=== PATIENT | male | born 1960 | race Caucasian/White ===

== ENCOUNTER 2017-05-13 08:00 | Inpatient (IN) | payer MEDICARE, OTHER ==
[~2017-05-13] VITALS: Ht 172.7 cm; Wt 72.8 kg
[2017-05-13] MEDS ORDERED: IOHEXOL 350 MG/ML 10 ML VIAL (for RAD DIAG) IVCONTRAST ONE (08:01)
[2017-05-13] MEDS ORDERED: XANA1TAB2 PO (08:10)
[2017-05-13] MEDS ORDERED: HYDR-3366 PO (08:10)
[2017-05-13] MEDS ORDERED: ZANT150T2 PO (08:10)
[2017-05-13 08:11] VITALS: BP 143/76; PULSE 66; RESP 18; TEMP 98.3; O2SAT 100
[2017-05-13] MEDS ORDERED: SUMA50TA2 PO (08:11)
[2017-05-13] MEDS ORDERED: SODIUM CHLOR 0.9% 1000 ML INJ 1,000 ML IV SCH (08:15)
[2017-05-13] MEDS ORDERED: ONDANSETRON HCL 4 MG/2 ML VIAL IVP ONE (08:15)
[2017-05-13 08:20] VITALS: PULSE 73; RESP 18; O2SAT 100
--- NOTE | 2017-05-13 08:30 | PD ---
HPI Chief Complaint: Abdominal Pain Time Seen by Provider: 08:33 Travel History International Travel<30 days: No Contact w/Intl Traveler<30days: No Traveled to known affect area: No History of Present Illness HPI 57yo M presented to the ED with abdominal pain. He states that the pain started last night before he went to bed and has remained constant. He describes the pain as sharp in nature and diffuse, localized to the RUQ. He rates the pain 10/ 10. He admits to vomiting, with at least 5 episodes throughout the night and the last with a small amount of blood. Pt admits to a history of GERD controlled with Zantec. Pt smokes 1/2 pack of cigarettes daily, no alcohol use and occasional THC use. Pt denies diarrhea, problems with urination, fevers, chest pain or SOB. Modifying Factors: None Associated Signs & Symptoms: Right upper quadrant abdominal pain, nausea and vomiting Risk Factors: None PFSH Past Medical History Anxiety: Yes Kidney Stones: Yes Migraines: Yes Past Surgical History Appendectomy: Yes Social History Alcohol Use: No Tobacco Use: Yes Substance Use: No Allergies-Medications (Allergen,Severity, Reaction): Coded Allergies: prochlorperazine (Verified Allergy, Unknown, 05/13/17) Reported Meds & Prescriptions Reported Meds & Active Scripts Active Reported Sumatriptan (Sumatriptan Succinate) 50 Mg Tab 50 Mg PO ONCE PRN If a satisfactory response has not been obtained at 2 hours, a second dose may be administered Zantac (Ranitidine HCl) 150 Mg Tab 150 Mg PO BID Xanax (Alprazolam) 1 Mg Tab 1 Mg PO Q8H PRN [place] (Hydrocodone-Acetaminophen) 10-325 Mg Tab 1 Tab PO Q8HR NEB PRN Review of Systems Except as stated in HPI: all other systems reviewed are Neg Gastrointestinal: Positive: Vomiting, Abdominal Pain Physical Exam Narrative GENERAL: 57yo W/M well-developed and well-nourished. Alert and oriented x3. Writhing in pain and in acute distress. SKIN: Warm and dry. HEAD: Atraumatic. Normocephalic. NECK: Trachea midline. No JVD. CARDIOVASCULAR: Regular rate and rhythm. No murmurs or gallops. RESPIRATORY: No accessory muscle use. Clear to auscultation. Breath sounds equal bilaterally. GASTROINTESTINAL: Abdomen soft and nondistended. Hepatic and splenic margins not palpable. Tenderness localized to the RUQ with guarding. MUSCULOSKELETAL: Extremities without clubbing, cyanosis, or edema. No obvious deformities. NEUROLOGICAL: Awake and alert. No obvious cranial nerve deficits. Motor grossly within normal limits. Normal speech. PSYCHIATRIC: Appropriate mood and affect; insight and judgment normal. Data Data Last Documented VS Vital Signs Date Time Temp Pulse Resp B/P (MAP) Pulse Ox O2 Delivery O2 Flow Rate FiO2 05/13/17 11:35 72 18 152/70 (97) 100 Room Air 05/13/17 08:11 98.3 Orders Orders Complete Blood Count With Diff (05/13/17 08:15) Comprehensive Metabolic Panel (05/13/17 08:15) Lipase (05/13/17 08:15) Urinalysis - C+S If Indicated (05/13/17 08:15) Iv Access Insert/Monitor (05/13/17 08:15) Ecg Monitoring (05/13/17 08:15) Oximetry (05/13/17 08:15) Ondansetron Inj (Zofran Inj) (05/13/17 08:15) Sodium Chlor 0.9% 1000 Ml Inj (Ns 1000 M (05/13/17 08:15) Sodium Chloride 0.9% Flush (Ns Flush) (05/13/17 08:15) Morphine Inj (Morphine Inj) (05/13/17 08:45) Ct Abd/Pel W Iv Contrast(Rout) (05/13/17 08:33) Famotidine Inj (Pepcid Inj) (05/13/17 11:00) Iohexol 350 Inj (Omnipaque 350 Inj) (05/13/17 08:01) Morphine Inj (Morphine Inj) (05/13/17 12:00) Electrocardiogram (05/13/17 08:12) Labs Laboratory Tests Test 05/13/17 08:15 05/13/17 09:15 05/13/17 11:09 White Blood Count 17.6 TH/MM3 Red Blood Count 4.57 MIL/MM3 Hemoglobin 13.9 GM/DL Hematocrit 41.8 % Mean Corpuscular Volume 91.4 FL Mean Corpuscular Hemoglobin 30.5 PG Mean Corpuscular Hemoglobin Concent 33.4 % Red Cell Distribution Width 13.3 % Platelet Count 270 TH/MM3 Mean Platelet Volume 8.1 FL Neutrophils (%) (Auto) 89.2 % Lymphocytes (%) (Auto) 6.2 % Monocytes (%) (Auto) 3.7 % Eosinophils (%) (Auto) 0.0 % Basophils (%) (Auto) 0.9 % Neutrophils # (Auto) 15.7 TH/MM3 Lymphocytes # (Auto) 1.1 TH/MM3 Monocytes # (Auto) 0.6 TH/MM3 Eosinophils # (Auto) 0.0 TH/MM3 Basophils # (Auto) 0.2 TH/MM3 CBC Comment DIFF FINAL Differential Comment Blood Urea Nitrogen 12 MG/DL Creatinine 1.03 MG/DL Random Glucose 112 MG/DL Total Protein 6.6 GM/DL Albumin 3.7 GM/DL Calcium Level 8.3 MG/DL Alkaline Phosphatase 88 U/L Aspartate Amino Transf (AST/SGOT) 14 U/L Alanine Aminotransferase (ALT/SGPT) 28 U/L Total Bilirubin 0.6 MG/DL Sodium Level 138 MEQ/L Potassium Level 3.7 MEQ/L Chloride Level 106 MEQ/L Carbon Dioxide Level 20.8 MEQ/L Anion Gap 11 MEQ/L Estimat Glomerular Filtration Rate 75 ML/MIN Lipase 75 U/L Urine Color YELLOW Urine Turbidity CLEAR Urine pH 8.5 Urine Specific [place] 1.013 Urine Protein TRACE mg/dL Urine Glucose (UA) NEG mg/dL Urine Ketones 80 mg/dL Urine Occult Blood NEG Urine Nitrite NEG Urine Bilirubin NEG Urine Urobilinogen LESS THAN 2.0 MG/DL Urine Leukocyte Esterase NEG Urine RBC 2 /hpf Urine WBC LESS THAN 1 /hpf Urine Squamous Epithelial Cells <1 /hpf Urine Mucus FEW /lpf Microscopic Urinalysis Comment CULT NOT INDICATED MDM Medical Decision Making Medical Screen Exam Complete: Yes Emergency Medical Condition: Yes Medical Record Reviewed: Yes Interpretation(s) Laboratory Tests Test 05/13/17 08:15 05/13/17 09:15 05/13/17 11:09 White Blood Count 17.6 TH/MM3 (4.0-11.0) Neutrophils (%) (Auto) 89.2 % (16.0-70.0) Lymphocytes (%) (Auto) 6.2 % (9.0-44.0) Neutrophils # (Auto) 15.7 TH/MM3 (1.8-7.7) Random Glucose 112 MG/DL (74-106) Calcium Level 8.3 MG/DL (8.5-10.1) Aspartate Amino Transf (AST/SGOT) 14 U/L (15-37) Carbon Dioxide Level 20.8 MEQ/L (21.0-32.0) Estimat Glomerular Filtration Rate 75 ML/MIN (>89) Urine Ketones 80 mg/dL (NEG) Urine Mucus FEW /lpf (OCC) Last 24 hours Impressions Abdomen/Pelvis CT 05/13/17 0833 Signed Impressions: Service Date/Time: Saturday, May 13, 2017 11:04 - CONCLUSION: Diffuse marked gallbladder wall thickening and cholelithiasis. Findings are suspicious for acute cholecystitis in the proper clinical setting. Marv Brock MD Differential Diagnosis Gastroenteritis versus gastritis versus pancreatitis versus cholecystitis versus other acute intra-abdominal processes Narrative Course Lab work shows leukocytosis. CAT scan is showing signs of cholecystitis. Exam is consistent with cholecystitis. Case was discussed with Dr. Crystal for consultation. He came in to see the patient and decides that he will admit the patient. Diagnosis Primary Impression: Acute cholecystitis Admitting Information Admitting Physician Requests: Admit Quiana Carrizales MD May 13, 2017 08:30
[2017-05-13 08:43] LABS: AUTOMATED NEUTROPHIL # 15.7 TH/MM3 (1.8-7.7); BASOPHIL # 0.2 TH/MM3 (0-0.2); BASOPHIL % 0.9 % (0.0-2.0); HEMATOCRIT 41.8 % (39.0-51.0); HEMOGLOBIN 13.9 GM/DL (13.0-17.0); LYMPH % 6.2 % (9.0-44.0); LYMPHOCYTE # 1.1 TH/MM3 (1.0-4.8); MEAN CELL VOLUME 91.4 FL (80.0-100.0); MEAN CORPUSCULAR HEMOGLOBIN 30.5 PG (27.0-34.0); MEAN CORPUSCULAR HGB CONC 33.4 % (32.0-36.0); MEAN PLATELET VOLUME 8.1 FL (7.0-11.0); MONO % 3.7 % (0.0-8.0); MONOCYTE # 0.6 TH/MM3 (0-0.9); NEUT % 89.2 % (16.0-70.0); PLATELET COUNT 270 TH/MM3 (150-450); RED BLOOD COUNT 4.57 MIL/MM3 (4.50-5.90); RED CELL DISTRIBUTION WIDTH 13.3 % (11.6-17.2); WHITE BLOOD COUNT 17.6 TH/MM3 (4.0-11.0)
[2017-05-13] MEDS ORDERED: MORPHINE SULFATE 2 MG/ML INJ IV PUSH ONE ×2 (08:45→12:00)
[2017-05-13 09:35] LABS: ALBUMIN 3.7 GM/DL (3.4-5.0); BICARBONATE 20.8 MEQ/L (21.0-32.0); BLOOD UREA NITROGEN 12 MG/DL (7-18); CALCIUM 8.3 MG/DL (8.5-10.1); CHLORIDE 106 MEQ/L (98-107); GLUCOSE,RANDOM 112 MG/DL (74-106); LIPASE 75 U/L (73-393); SODIUM (NA) 138 MEQ/L (136-145)
[2017-05-13 09:51] LABS: ALKALINE PHOSPHATASE 88 U/L (45-117); ALT (GPT) 28 U/L (12-78); AST (GOT) 14 U/L (15-37); TOTAL BILIRUBIN ADULT 0.6 MG/DL (0.2-1.0); TOTAL PROTEIN 6.6 GM/DL (6.4-8.2)
[2017-05-13 10:11] LABS: CREATININE 1.03 MG/DL (0.60-1.30); GLOMERULAR FILTRATION RATE 75 ML/MIN (>89)
[2017-05-13] MEDS ORDERED: FAMOTIDINE 20 MG/2 ML VIAL IV ONE (11:00)
[2017-05-13 11:31] LABS: BILIRUBIN, URINE NEG (NEG); BLOOD, URINE NEG (NEG); GLUCOSE,URINE NEG (NEG); KETONE, URINE 80 mg/dL (NEG); MUCUS URINE FEW /lpf (OCC); NITRITE,URINE NEG (NEG); PH, URINE 8.5 (5.0-8.5); SQUAMOUS EPITHELIAL CELL URINE <1 /hpf (0-5); URINE COLOR YELLOW (YELLW/STRAW); URINE LEUKOCYTE ESTERASE NEG (NEG)
[2017-05-13 11:35] VITALS: BP 152/70; PULSE 72; RESP 18; O2SAT 100
--- NOTE | 2017-05-13 11:40 | RADRPT ---
EXAM DATE/TIME: 05/13/2017 11:04 [place] COMPARISON: No previous studies available for comparison. INDICATIONS : Severe right side abdominal pain. IV CONTRAST: 96 cc Omnipaque 350 (iohexol) IV ORAL CONTRAST: No oral contrast ingested. RADIATION DOSE: 6.64 CTDIvol (mGy) MEDICAL HISTORY : Renal calculi. SURGICAL HISTORY : Appendectomy. ENCOUNTER: Initial ACUITY: 1 day PAIN SCALE: 10/10 LOCATION: Right upper quadrant TECHNIQUE: Volumetric scanning of the abdomen and pelvis was performed. Using automated exposure control and ad justment of the mA and/or kV according to patient size, radiation dose was kept as low as reasonably achievable to obtain optimal diagnostic quality images. DICOM format image data is available electro nically for review and comparison. FINDINGS: LOWER LUNGS: The visualized lower lungs are clear. LIVER: Markedly thickened gallbladder wall and pericholecystic fluid with multiple gallstones seen in the ga llbladder. Liver within normal limits. SPLEEN: Normal size without lesion. PANCREAS: Within normal limits. KIDNEYS: Cystic structures in the renal hilum on the left likely represent peripelvic cysts. Ureters are suzanne l diameter. No solid mass or hydronephrosis identified. ADRENAL GLANDS: Within normal limits. VASCULAR: There is no aortic aneurysm. BOWEL/MESENTERY: Small amount of free fluid in the pelvis. No bowel dilatation. No free air. Appendix not identified. ABDOMINAL WALL: Within normal limits. RETROPERITONEUM: There is no lymphadenopathy. BLADDER: No wall thickening or mass. REPRODUCTIVE: Within normal limits. INGUINAL: There is no lymphadenopathy or hernia. MUSCULOSKELETAL: Within normal limits for patient age. CONCLUSION: Diffuse marked gallbladder wall thickening and cholelithiasis. Findings are suspicious for acute chol ecystitis in the proper clinical setting. Marv Brock MD on May 13, 2017 at 11:35 Board Certified Radiologist. This report was verified electronically.
[2017-05-13 16:00] VITALS: BP 156/86; PULSE 99; RESP 20; TEMP 100.4; O2SAT 77
[2017-05-13] MEDS ORDERED: MORPHINE SULFATE 4 MG/ML INJ IV PUSH PRN (16:45)
--- NOTE | 2017-05-13 16:55 | MH ---
cc: MD MELLISA,[facility] DATE OF ADMISSION: 05/13/2017 ADMITTING DIAGNOSIS: Acute cholecystitis and cholelithiasis. HISTORY OF PRESENT ILLNESS: This 57-year-old male presents to the emergency room with abdominal pain after eating a big dinner of pizza and wings. The patient states the pain was epigastric and in the right upper quadrant pain and very severe and he vomited at least five times; hence, the presentation. He underwent ultrasound which clearly reveals acute cholecystitis and cholelithiasis and hence the admission. PAST MEDICAL HISTORY: The past medical history is that of: 1. COPD. 2. Anxiety. 3. Chronic pain which is managed with narcotics. PAST SURGICAL HISTORY: 1. Appendectomy. 2. Some sort of a neck fusion in the past. SOCIAL HISTORY: The patient does not drink. He smokes about half to one pack a day. PHYSICAL EXAMINATION: GENERAL: The physical examination reveals a 57-year-old male appearing older than his actual age. HEAD, EYES, EARS, NOSE, THROAT: Normocephalic. No trauma to the head. Pupils equal and reactive. Extraocular muscles intact. NECK: The neck is supple. Bilateral carotid pulses and bilateral faint carotid bruits. CHEST: Bilateral breath sounds decreased over both lung whiting and the patient is using accessory muscles to breathe. He has moderate COPD with atrophy of some of the chest wall muscular. HEART: Regular rhythm. ABDOMEN: Soft. Somewhat distended. Active bowel sounds. No rebound. Some involuntary guarding in the right upper quadrant. The gallbladder is palpated by the dome and it is clearly distended and acutely inflamed. No other masses. GROINS: Normal. EXTREMITIES: Within normal limits with good proximal and distal pulses. No acute vascular deficit. BACK: Normal. IMPRESSION: A 57-year-old male with acute cholecystitis and cholelithiasis and additional medical problems. It should be noted that I discussed his respiratory status with his and they were both extremely surprised that I stated the patient has COPD and respiratory insufficiency but apparently the patient was here before in the hospital. At this point, the patient will be stabilized and given a few doses of antibiotics and we will take him to the operating room for a laparoscopic cholecystectomy tomorrow. David MARTINEZ /3:50 PM /4:36 PM
[2017-05-13] MEDS: SODIUM CHLOR 0.9% 1000 ML INJ 1,000 ML IV SCH ×2 (17:27→20:24)
[2017-05-13] MEDS: PIPERACIL-TAZO 3.375 GM PREMIX 50 ML IV SCH (19:39)
[2017-05-13 20:00] VITALS: BP 169/80; PULSE 80; RESP 20; TEMP 101.1; O2SAT 99
[2017-05-13] MEDS: MORPHINE SULFATE 2 MG/ML INJ IV PRN ×2 (20:25→23:38)
[2017-05-13] MEDS: ONDANSETRON HCL 4 MG/2 ML VIAL IV PUSH PRN (20:25)
[2017-05-13] MEDS ORDERED: LACTATED RINGER'S 1000 ML IV PRN (23:00)
[2017-05-13] MEDS ORDERED: SODIUM CHLORID 0.9% 500 ML IV PRN (23:00)
[2017-05-13] MEDS ORDERED: POVIDONE IODINE 5% (ANTISEPSIS KIT) 4 APPLICATIONS EACH NARE PRN (23:00)
[2017-05-13] MEDS ORDERED: CHLORHEXIDINE GLUCONATE 2 % 1 PACK (2 CLOTHS) TOPICAL PRN (23:00)
[2017-05-14] VITALS: BP 155/88; PULSE 92; RESP 17; TEMP 99.4; O2SAT 97
[2017-05-14] MEDS: MORPHINE SULFATE 2 MG/ML INJ IV PRN ×4 (02:28→09:26)
[2017-05-14] MEDS: PIPERACIL-TAZO 3.375 GM PREMIX 50 ML IV SCH ×3 (02:29→10:30)
[2017-05-14] MEDS: ONDANSETRON HCL 4 MG/2 ML VIAL IV PUSH PRN (02:29)
[2017-05-14 08:00] VITALS: BP_SYST 138; BP_SYST 155; BP_DIAS 80; BP_DIAS 87; PULSE 72; PULSE 78; RESP 18; TEMP 96.6; O2SAT 95
[2017-05-14] MEDS ORDERED: ACETAMINOPHEN 1000 MG/100 ML 100 ML IV ONE (09:19)
[2017-05-14] MEDS ORDERED: BUPIVACAINE/EPINEPHRINE 0.25% 50 ML VIAL ONE (09:31)
[2017-05-14] MEDS ORDERED: BUPIVACAINE/EPINEPHRINE 0.5% 50 ML VIAL ONE (09:32)
[2017-05-14] MEDS ORDERED: SUGAMMADEX SODIUM 200 MG/2 ML VIAL IV PUSH ONE (11:36)
[2017-05-14] MEDS ORDERED: KETOROLAC TROMETHAMINE 30 MG/ML (IVP) VIAL IV PUSH ONE (12:00)
[2017-05-14] MEDS ORDERED: PROPOFOL 200 MG/20 ML AMP IV ONE (12:00)
[2017-05-14] MEDS ORDERED: ROCURONIUM INJ 50 MG/5 ML SYRINGE IV PUSH ONE (12:00)
[2017-05-14] MEDS ORDERED: SUCCINYLCHOLINE CHLORIDE 100 MG/5 ML SYRINGE IV PUSH ONE (12:00)
[2017-05-14] MEDS ORDERED: LIDOCAINE HCL 1% PF 5 ML SYRINGE OTHER ONE (12:00)
[2017-05-14] MEDS ORDERED: PHENYLEPH/NS 1000 MCG/10 ML SYR IV ONE (12:00)
[2017-05-14] MEDS ORDERED: METOPROLOL TARTRATE 5 MG/5 ML VIAL IV ONE (12:00)
[2017-05-14] MEDS ORDERED: LACTATED RINGER'S 1000 ML INJ 2,000 ML IV ONE (12:00)
[2017-05-14] MEDS ORDERED: hydrALAZINE HCL 20 MG/ML VIAL IV ONE (12:00)
[2017-05-14] MEDS ORDERED: ONDANSETRON HCL 4 MG/2 ML VIAL IV ONE (12:00)
[2017-05-14] MEDS ORDERED: *HYDROmorphone PF 1 MG VIAL PERIprocedural Use ONLY ONE ×2 (12:09→12:13)
[2017-05-14] MEDS ORDERED: LORazepam 2 MG/ML VIAL ONE (12:18)
[2017-05-14] MEDS ORDERED: DO NOT ADM ANY ANTICOAGULANT DRUGS PRN (12:45)
[2017-05-14] MEDS ORDERED: MORPHINE SULFATE 4 MG/ML INJ ONE (12:47)
[2017-05-14 16:00] VITALS: BP 96/54; PULSE 87; RESP 17; TEMP 96.2; O2SAT 99
[2017-05-14] MEDS: HYDROmorphone HCL PF 2 MG/ML VIAL IV PUSH PRN ×2 (17:11→22:53)
[2017-05-14] MEDS: SODIUM CHLORIDE 0.9% FLUSH 10 ML FLUSH IV FLUSH PRN (17:14)
[2017-05-14] MEDS: SODIUM CHLOR 0.9% 1000 ML INJ 1,000 ML IV SCH ×2 (17:14→22:45)
--- NOTE | 2017-05-14 17:15 | EKG ---
Date Performed: 05/13/2017 Time Performed: 08:12:42 PTAGE: 57 years EKG: Sinus rhythm NORMAL ECG NO PREVIOUS TRACING DOCTOR: Yang Perez Interpretating Date/Time 05/14/2017 17:14:13
--- NOTE | 2017-05-14 18:09 | MP ---
cc: MD MELLISA,ERROL DATE OF SURGERY: 05/14/2017. PREOPERATIVE DIAGNOSIS: Acute cholecystitis. POSTOPERATIVE DIAGNOSIS: Gangrenous cholecystitis. OPERATIVE PROCEDURE PERFORMED: Laparoscopic cholecystectomy. SURGEON: Errol Crystal M.D. ESTIMATED BLOOD LOSS: 200 mL. DESCRIPTION OF THE PROCEDURE IN DETAIL: The patient WAS prepped and draped in the usual fashion and a small vertical supraumbilical incision was made and deepened down under direct vision. The abdominal cavity was entered and a Jude cannula was placed. The abdomen was insufflated with CO2 and the patient positioned in reverse Trendelenburg position with a left tilt. The camera was inserted. The abdomen was explored in quadrants. The patient had some adhesions in the right lower quadrant from previous surgeries and then in the right upper quadrant the gallbladder looked purplish-black with a green hue which was clearly necrotic and the liver appeared to be swollen. The omentum and transverse colon were stuck to the same. Now the subxiphoid and two right upper quadrant ports were placed and then very carefully with the [place] dissector and a suction supervisor reclamation, the omentum was taken down and swept away from the gallbladder. The gallbladder was now grasped with alligator clamps and elevated. Because of the huge size of this gallbladder, the clamps available and the graspers available were inadequate and therefore a bariatric tray had to be opened. Finally, the gallbladder was elevated and then with another grasper the neck exposed. Finally with very, very careful dissection, the cystic duct was exposed and then the cystic artery. Both were ligated with Ligaclips and divided and the gallbladder was taken off the liver bed initially with a spatula cautery but because of the amount of fluid, that did not work and was sort of cooking it, therefore, it was done with the Endoshears. Finally the gallbladder was freed up from the liver and then the liver in the EndoCatch bag was delivered through the supraumbilical incision. Considering the size of this gallbladder, I had to extend the incision a little bit upwards for about an inch just to get this thing out. The abdomen was now irrigated with copious amounts of saline, washed out and then a #10 flat Sae-Mayfield drain was placed in the subhepatic space. The ports were withdrawn. The incision was closed with #0 Vicryl [id number] and the skin was closed with 4-0 Monocryl. Benzoin and Steri-Strips were applied. The patient tolerated the procedure well. Errol ARSHAD/DAVID /3:51 PM /5:55 PM
[2017-05-14 20:00] VITALS: BP 126/72; PULSE 91; RESP 18; TEMP 97.9; O2SAT 98
[2017-05-14] MEDS: oxyCODONE/ACETAMINOPHEN 5 MG/325 MG TAB PO PRN (21:25)
[2017-05-15] VITALS: BP 140/80; PULSE 100; RESP 18; TEMP 98.7; O2SAT 100
[2017-05-15] MEDS: oxyCODONE/ACETAMINOPHEN 5 MG/325 MG TAB PO PRN ×2 (02:28→09:20)
[2017-05-15] MEDS: PIPERACIL-TAZO 3.375 GM PREMIX 50 ML IV SCH ×3 (02:28→18:18)
[2017-05-15] MEDS: ONDANSETRON HCL 4 MG/2 ML VIAL IV PUSH PRN ×2 (02:28→20:57)
[2017-05-15] MEDS: HYDROmorphone HCL PF 2 MG/ML VIAL IV PUSH PRN ×7 (02:33→23:04)
[2017-05-15 04:00] VITALS: BP 140/87; PULSE 94; RESP 16; TEMP 97.4; O2SAT 99
[2017-05-15 07:29] LABS: ALBUMIN 2.8 GM/DL (3.4-5.0); ALKALINE PHOSPHATASE 115 U/L (45-117); ALT (GPT) 146 U/L (12-78); AST (GOT) 79 U/L (15-37); BICARBONATE 24.1 MEQ/L (21.0-32.0); BLOOD UREA NITROGEN 14 MG/DL (7-18); CHLORIDE 106 MEQ/L (98-107); CREATININE 0.65 MG/DL (0.60-1.30); GLOMERULAR FILTRATION RATE 128 ML/MIN (>89); GLUCOSE,RANDOM 93 MG/DL (74-106); SODIUM (NA) 137 MEQ/L (136-145)
[2017-05-15 07:34] LABS: HEMATOCRIT 35.5 % (39.0-51.0); HEMOGLOBIN 12.1 GM/DL (13.0-17.0); MEAN CELL VOLUME 92.4 FL (80.0-100.0); MEAN CORPUSCULAR HEMOGLOBIN 31.4 PG (27.0-34.0); MEAN PLATELET VOLUME 8.4 FL (7.0-11.0); PLATELET COUNT 180 TH/MM3 (150-450); RED BLOOD COUNT 3.84 MIL/MM3 (4.50-5.90); RED CELL DISTRIBUTION WIDTH 13.7 % (11.6-17.2); WHITE BLOOD COUNT 18.4 TH/MM3 (4.0-11.0)
[2017-05-15 08:00] VITALS: BP 131/80; PULSE 80; RESP 18; TEMP 97.2; O2SAT 100
[2017-05-15] MEDS: SODIUM CHLOR 0.9% 1000 ML INJ 1,000 ML IV SCH ×2 (08:45→18:18)
--- NOTE | 2017-05-15 10:49 | PD.CAR.PN ---
CVT Progress Note Subjective/Hospital Course: Patient is status post laparoscopic cholecystectomy for gangrenous gallbladder Incisions are clean and dry HIRAL drainage serosanguineous Patient should remain on IV antibiotics for at least another day due to the severity of his gangrene and advanced pathology Diet tolerated Abdomen soft active bowel sounds Plan to discharge probably tomorrow Objective: Vital Signs Date Time Temp Pulse Resp B/P (MAP) Pulse Ox O2 Delivery O2 Flow Rate FiO2 05/15/17 08:00 97.2 80 18 131/80 (97) 100 05/15/17 04:00 97.4 94 16 140/87 (104) 99 05/15/17 00:00 98.7 100 18 140/80 (100) 100 05/14/17 20:00 97.9 91 18 126/72 (90) 98 05/14/17 19:00 98 Nasal Cannula 2.00 05/14/17 16:00 96.2 87 17 96/54 (68) 99 05/14/17 12:42 111 19 111/53 (72) 98 Nasal Cannula 2 05/14/17 12:30 102 19 106/55 (72) 98 Nasal Cannula 2 05/14/17 12:20 104 19 131/64 (86) 99 Nasal Cannula 2 05/14/17 12:13 99.3 110 19 147/68 (94) 100 Nasal Cannula 2 Labs: Laboratory Tests Test 05/15/17 06:12 White Blood Count 18.4 TH/MM3 (4.0-11.0) Red Blood Count 3.84 MIL/MM3 (4.50-5.90) Hemoglobin 12.1 GM/DL (13.0-17.0) Hematocrit 35.5 % (39.0-51.0) Mean Corpuscular Volume 92.4 FL (80.0-100.0) Mean Corpuscular Hemoglobin 31.4 PG (27.0-34.0) Mean Corpuscular Hemoglobin Concent 34.0 % (32.0-36.0) Red Cell Distribution Width 13.7 % (11.6-17.2) Platelet Count 180 TH/MM3 (150-450) Mean Platelet Volume 8.4 FL (7.0-11.0) Blood Urea Nitrogen 14 MG/DL (7-18) Creatinine 0.65 MG/DL (0.60-1.30) Random Glucose 93 MG/DL (74-106) Total Protein 6.0 GM/DL (6.4-8.2) Albumin 2.8 GM/DL (3.4-5.0) Calcium Level 8.0 MG/DL (8.5-10.1) Alkaline Phosphatase 115 U/L (45-117) Aspartate Amino Transf (AST/SGOT) 79 U/L (15-37) Alanine Aminotransferase (ALT/SGPT) 146 U/L (12-78) Total Bilirubin 1.0 MG/DL (0.2-1.0) Sodium Level 137 MEQ/L (136-145) Potassium Level 4.0 MEQ/L (3.5-5.1) Chloride Level 106 MEQ/L (98-107) Carbon Dioxide Level 24.1 MEQ/L (21.0-32.0) Anion Gap 7 MEQ/L (5-15) Estimat Glomerular Filtration Rate 128 ML/MIN (>89) Result Diagram: 05/15/17 0612 05/15/17 0612 David Crystal MD May 15, 2017 10:49
[2017-05-15] MEDS: SUMAtriptan SUCCINATE 50 MG TAB PO PRN (11:51)
[2017-05-15 12:00] VITALS: BP 151/86; PULSE 87; RESP 20; TEMP 98.7; O2SAT 100
[2017-05-15 16:00] VITALS: BP 154/90; PULSE 86; RESP 19; TEMP 96.5; O2SAT 100
[2017-05-15 20:45] VITALS: BP 129/78; PULSE 80; RESP 17; TEMP 98.6; O2SAT 100
[2017-05-15] MEDS: ALPRAZolam 1 MG TAB PO PRN (20:57)
[2017-05-16] MEDS: oxyCODONE/ACETAMINOPHEN 5 MG/325 MG TAB PO PRN (00:45)
[2017-05-16] MEDS: SODIUM CHLOR 0.9% 1000 ML INJ 1,000 ML IV SCH (01:09)
[2017-05-16] MEDS: PIPERACIL-TAZO 3.375 GM PREMIX 50 ML IV SCH ×3 (01:10→17:32)
[2017-05-16] MEDS: HYDROmorphone HCL PF 2 MG/ML VIAL IV PUSH PRN ×7 (01:10→21:04)
[2017-05-16 01:11] VITALS: BP 105/65; PULSE 80; RESP 17; TEMP 98.7; O2SAT 100
[2017-05-16] MEDS: SUMAtriptan SUCCINATE 50 MG TAB PO PRN (04:10)
[2017-05-16] MEDS: ONDANSETRON HCL 4 MG/2 ML VIAL IV PUSH PRN (04:20)
[2017-05-16 05:15] VITALS: BP 120/74; PULSE 69; RESP 17; TEMP 98.1; O2SAT 100
[2017-05-16 07:50] VITALS: BP 123/77; PULSE 85; RESP 17; TEMP 96.9; O2SAT 100
[2017-05-16 11:52] VITALS: BP 139/85; PULSE 72; RESP 17; TEMP 97.5; O2SAT 98
[2017-05-16] MEDS ORDERED: LACTULOSE SYRUP 20 GM/30 ML CUP PO ONE (15:15)
[2017-05-16 16:00] VITALS: BP 159/86; PULSE 84; RESP 17; TEMP 97.9; O2SAT 99
--- NOTE | 2017-05-16 17:36 | PD.CAR.PN ---
CVT Progress Note Subjective/Hospital Course: Patient is status post laparoscopic cholecystectomy for gangrenous gallbladder Incisions are clean and dry HIRAL drainage serosanguineous Patient should remain on IV antibiotics for at least another day due to the severity of his gangrene and advanced pathology Diet tolerated Abdomen soft active bowel sounds Plan to discharge probably tomorrow 05/16/17 Patient doing much better today Bilateral good breath sounds with decreased breath sounds over the both bases consistent with atelectasis from laying in bed Abdomen is soft active bowel sounds and patient's tolerating diet HIRAL drainage is still significant about 300 cc over last 24 hours and this is serosanguineous and no bile in it This was a very bad infection and gangrenous cholecystitis some not surprised by the drainage and will leave the HIRAL drain for another day Continue IV antibiotics till tomorrow and then switch to by mouth antibiotics whether patient goes home or doesn't Patient is not very compliant with care and refuses to get out of bed and ambulate I have discussed this with patient at length and urged him to get up and be moving around so we can discharge him tomorrow Objective: Vital Signs Date Time Temp Pulse Resp B/P (MAP) Pulse Ox O2 Delivery O2 Flow Rate FiO2 05/16/17 16:00 97.9 84 17 159/86 (110) 99 05/16/17 11:52 97.5 72 17 139/85 (103) 98 05/16/17 07:50 96.9 85 17 123/77 (92) 100 05/16/17 05:15 98.1 69 17 120/74 (89) 100 05/16/17 01:11 98.7 80 17 105/65 (78) 100 05/16/17 00:48 Nasal Cannula 3.00 05/15/17 20:45 98.6 80 17 129/78 (95) 100 Result Diagram: 05/15/17 0612 05/15/17611 David Crystal MD May 16, 2017 17:36
[2017-05-16 20:15] VITALS: BP 137/77; PULSE 69; RESP 18; TEMP 99.9; O2SAT 97
[2017-05-16] MEDS: ENOXAPARIN SODIUM 40 MG/0.4 ML SYRINGE SQ SCH (21:04)
[2017-05-16] MEDS: ALPRAZolam 1 MG TAB PO PRN (21:27)
[2017-05-17 00:05] VITALS: BP 136/82; PULSE 71; RESP 18; TEMP 99.5; O2SAT 99
[2017-05-17] MEDS: ACETAMINOPHEN/HYDROcodone 325 MG/7.5 MG TAB PO PRN ×3 (00:45→13:03)
[2017-05-17] MEDS: PIPERACIL-TAZO 3.375 GM PREMIX 50 ML IV SCH ×3 (01:41→15:36)
[2017-05-17] MEDS: HYDROmorphone HCL PF 2 MG/ML VIAL IV PUSH PRN ×4 (01:42→12:24)
[2017-05-17 04:20] VITALS: TEMP 97
[2017-05-17 08:00] VITALS: BP 144/82; PULSE 80; RESP 17; TEMP 97; O2SAT 98
[2017-05-17] MEDS: ALPRAZolam 1 MG TAB PO PRN ×2 (09:20→17:13)
[2017-05-17 09:30] LABS: HEMATOCRIT 35.2 % (39.0-51.0); MEAN CELL VOLUME 92.8 FL (80.0-100.0); MEAN CORPUSCULAR HEMOGLOBIN 31.6 PG (27.0-34.0); MEAN CORPUSCULAR HGB CONC 34.1 % (32.0-36.0); MEAN PLATELET VOLUME 7.5 FL (7.0-11.0); PLATELET COUNT 239 TH/MM3 (150-450); RED BLOOD COUNT 3.79 MIL/MM3 (4.50-5.90); RED CELL DISTRIBUTION WIDTH 13.4 % (11.6-17.2); WHITE BLOOD COUNT 8.9 TH/MM3 (4.0-11.0)
[2017-05-17 10:03] LABS: ALBUMIN 2.8 GM/DL (3.4-5.0); AST (GOT) 19 U/L (15-37); BICARBONATE 28.1 MEQ/L (21.0-32.0); BLOOD UREA NITROGEN 7 MG/DL (7-18); CALCIUM 8.3 MG/DL (8.5-10.1); CHLORIDE 102 MEQ/L (98-107); CREATININE 0.73 MG/DL (0.60-1.30); GLOMERULAR FILTRATION RATE 112 ML/MIN (>89); GLUCOSE,RANDOM 95 MG/DL (74-106); SODIUM (NA) 137 MEQ/L (136-145)
[2017-05-17 10:07] LABS: ALKALINE PHOSPHATASE 129 U/L (45-117); ALT (GPT) 71 U/L (12-78); TOTAL BILIRUBIN ADULT 0.7 MG/DL (0.2-1.0); TOTAL PROTEIN 6.1 GM/DL (6.4-8.2)
[2017-05-17 12:25] VITALS: BP 126/66; PULSE 72; RESP 17; TEMP 99; O2SAT 97
--- NOTE | 2017-05-17 14:15 | PD.CAR.PN ---
CVT Progress Note Subjective/Hospital Course: Patient is status post laparoscopic cholecystectomy for gangrenous gallbladder Incisions are clean and dry HIRAL drainage serosanguineous Patient should remain on IV antibiotics for at least another day due to the severity of his gangrene and advanced pathology Diet tolerated Abdomen soft active bowel sounds Plan to discharge probably tomorrow 05/16/17 Patient doing much better today Bilateral good breath sounds with decreased breath sounds over the both bases consistent with atelectasis from laying in bed Abdomen is soft active bowel sounds and patient's tolerating diet HIRAL drainage is still significant about 300 cc over last 24 hours and this is serosanguineous and no bile in it This was a very bad infection and gangrenous cholecystitis some not surprised by the drainage and will leave the HIRAL drain for another day Continue IV antibiotics till tomorrow and then switch to by mouth antibiotics whether patient goes home or doesn't Patient is not very compliant with care and refuses to get out of bed and ambulate I have discussed this with patient at length and urged him to get up and be moving around so we can discharge him tomorrow 05/17/17 Patient doing better today Abdomen is soft active bowel sounds is taking by mouth well HIRAL drainage right upper quadrant significantly decreased and remained serosanguineous yellowish resembling ascites Incisions are clean and dry Patient still claims to be in significant amount of pain and refuses to go home He is a chronic narcotic user at home and under pain management protocols so this is not surprising Encouraged to go and ambulate Will discharge patient tomorrow purely for social reasons Objective: Vital Signs Date Time Temp Pulse Resp B/P (MAP) Pulse Ox O2 Delivery O2 Flow Rate FiO2 05/17/17 12:25 99.0 72 17 126/66 (86) 97 05/17/17 09:29 Room Air 05/17/17 08:00 97.0 80 17 144/82 (102) 98 05/17/17 04:20 97.0 05/17/17 00:05 99.5 71 18 136/82 (100) 99 05/16/17 20:15 99.9 69 18 137/77 (97) 97 05/16/17 16:00 97.9 84 17 159/86 (110) 99 Labs: Laboratory Tests Test 05/17/17 08:58 White Blood Count 8.9 TH/MM3 (4.0-11.0) Red Blood Count 3.79 MIL/MM3 (4.50-5.90) Hemoglobin 12.0 GM/DL (13.0-17.0) Hematocrit 35.2 % (39.0-51.0) Mean Corpuscular Volume 92.8 FL (80.0-100.0) Mean Corpuscular Hemoglobin 31.6 PG (27.0-34.0) Mean Corpuscular Hemoglobin Concent 34.1 % (32.0-36.0) Red Cell Distribution Width 13.4 % (11.6-17.2) Platelet Count 239 TH/MM3 (150-450) Mean Platelet Volume 7.5 FL (7.0-11.0) Blood Urea Nitrogen 7 MG/DL (7-18) Creatinine 0.73 MG/DL (0.60-1.30) Random Glucose 95 MG/DL (74-106) Total Protein 6.1 GM/DL (6.4-8.2) Albumin 2.8 GM/DL (3.4-5.0) Calcium Level 8.3 MG/DL (8.5-10.1) Alkaline Phosphatase 129 U/L (45-117) Aspartate Amino Transf (AST/SGOT) 19 U/L (15-37) Alanine Aminotransferase (ALT/SGPT) 71 U/L (12-78) Total Bilirubin 0.7 MG/DL (0.2-1.0) Sodium Level 137 MEQ/L (136-145) Potassium Level 3.2 MEQ/L (3.5-5.1) Chloride Level 102 MEQ/L (98-107) Carbon Dioxide Level 28.1 MEQ/L (21.0-32.0) Anion Gap 7 MEQ/L (5-15) Estimat Glomerular Filtration Rate 112 ML/MIN (>89) Result Diagram: 05/17/17 0858 05/17/17 0858 David Crystal MD May 17, 2017 14:15
[2017-05-17] MEDS ORDERED: fentaNYL 50 MCG/HR PATCH T-DERMAL SCH (15:00)
[2017-05-17] MEDS: ENOXAPARIN SODIUM 40 MG/0.4 ML SYRINGE SQ SCH (15:36)
[2017-05-17 15:40] VITALS: BP 141/84; PULSE 72; RESP 17; TEMP 98.4; O2SAT 99
[2017-05-17] MEDS: ACETAMINOPHEN/HYDROcodone 325 MG/10 MG TAB PO PRN ×2 (17:09→20:51)
[2017-05-17 20:10] VITALS: BP 122/74; PULSE 73; RESP 17; TEMP 97.9; O2SAT 99
[2017-05-17] MEDS ORDERED: LACTULOSE SYRUP 20 GM/30 ML CUP PO ONE (21:00)
[2017-05-18 00:25] VITALS: BP 139/84; PULSE 67; RESP 17; TEMP 97.3; O2SAT 97
[2017-05-18] MEDS: PIPERACIL-TAZO 3.375 GM PREMIX 50 ML IV SCH ×3 (02:33→17:58)
[2017-05-18] MEDS: ACETAMINOPHEN/HYDROcodone 325 MG/10 MG TAB PO PRN ×4 (05:04→21:36)
[2017-05-18] MEDS: ALPRAZolam 1 MG TAB PO PRN ×3 (05:04→21:36)
[2017-05-18 07:51] VITALS: BP 136/81; PULSE 78; RESP 17; TEMP 96.8; O2SAT 98
[2017-05-18] MEDS ORDERED: LACTULOSE SYRUP 20 GM/30 ML CUP PO PRN (09:00)
[2017-05-18 12:00] VITALS: BP 119/75; PULSE 77; RESP 17; TEMP 98.8; O2SAT 98
[2017-05-18 16:00] VITALS: BP 121/73; PULSE 72; RESP 17; TEMP 97.2; O2SAT 98
--- NOTE | 2017-05-18 17:35 | PD.CAR.PN ---
CVT Progress Note Subjective/Hospital Course: Patient is status post laparoscopic cholecystectomy for gangrenous gallbladder Incisions are clean and dry HIRAL drainage serosanguineous Patient should remain on IV antibiotics for at least another day due to the severity of his gangrene and advanced pathology Diet tolerated Abdomen soft active bowel sounds Plan to discharge probably tomorrow 05/16/17 Patient doing much better today Bilateral good breath sounds with decreased breath sounds over the both bases consistent with atelectasis from laying in bed Abdomen is soft active bowel sounds and patient's tolerating diet HIRAL drainage is still significant about 300 cc over last 24 hours and this is serosanguineous and no bile in it This was a very bad infection and gangrenous cholecystitis some not surprised by the drainage and will leave the HIRAL drain for another day Continue IV antibiotics till tomorrow and then switch to by mouth antibiotics whether patient goes home or doesn't Patient is not very compliant with care and refuses to get out of bed and ambulate I have discussed this with patient at length and urged him to get up and be moving around so we can discharge him tomorrow 05/17/17 Patient doing better today Abdomen is soft active bowel sounds is taking by mouth well HIRAL drainage right upper quadrant significantly decreased and remained serosanguineous yellowish resembling ascites Incisions are clean and dry Patient still claims to be in significant amount of pain and refuses to go home He is a chronic narcotic user at home and under pain management protocols so this is not surprising Encouraged to go and ambulate Will discharge patient tomorrow 05/18/17 Patient doing very well Abdomen is soft active bowel sounds and incisions are clean HIRAL drainage is now turned yellowish brown with slight biliary tinge so I believe patient is draining from the ducts of [place] Total drainage about 200 cc per 24 hours We will leave HIRAL in for another day or so LFTs normal Will check with HIDA scan to see there is an actual active drainage from the surface of the liver Objective: Vital Signs Date Time Temp Pulse Resp B/P (MAP) Pulse Ox O2 Delivery O2 Flow Rate FiO2 05/18/17 16:28 18 05/18/17 16:00 97.2 72 17 121/73 (89) 98 05/18/17 12:00 98.8 77 17 119/75 (90) 98 05/18/17 07:51 96.8 78 17 136/81 (99) 98 05/18/17 00:25 97.3 67 17 139/84 (102) 97 05/17/17 20:10 97.9 73 17 122/74 (90) 99 Result Diagram: 05/17/17 0858 05/17/17 0858 David Crystal MD May 18, 2017 17:35
[2017-05-18] MEDS: ENOXAPARIN SODIUM 40 MG/0.4 ML SYRINGE SQ SCH (17:58)
[2017-05-18 20:00] VITALS: BP 151/89; PULSE 72; RESP 16; TEMP 98.2; O2SAT 98
[2017-05-18] MEDS: SODIUM CHLORIDE 0.9% FLUSH 10 ML FLUSH IV FLUSH PRN (21:36)
[2017-05-18] MEDS ORDERED: TRAM50 PO (22:37)
[2017-05-19] VITALS: BP 146/86; PULSE 70; RESP 16; TEMP 96.9; O2SAT 99
[2017-05-19] MEDS: PIPERACIL-TAZO 3.375 GM PREMIX 50 ML IV SCH ×3 (02:11→18:00)
[2017-05-19] MEDS: ACETAMINOPHEN/HYDROcodone 325 MG/10 MG TAB PO PRN ×4 (02:13→15:47)
[2017-05-19 04:00] VITALS: BP 128/80; PULSE 68; RESP 16; TEMP 97.3; O2SAT 98
[2017-05-19] MEDS: ALPRAZolam 1 MG TAB PO PRN ×2 (06:13→15:48)
[2017-05-19 08:00] VITALS: BP 107/67; PULSE 67; RESP 17; TEMP 96.6; O2SAT 97
--- NOTE | 2017-05-19 11:33 | RADRPT ---
EXAM DATE/TIME: 05/19/2017 08:58 [place] COMPARISON: CT ABDOMEN & PELVIS W CONTRAST, May 13, 2017, 11:04. 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 DOSE: 4.1 mCi Tc99m Mebrofenin IV MEDICAL HISTORY : Hypertension. SURGICAL HISTORY : Cholecystectomy. Appendectomy. Neck surgery. ENCOUNTER: Initial ACUITY: 3 days PAIN SCALE: 8/10 LOCATION: Right upper quadrant TECHNIQUE: Following the intravenous administration of radiotracer, dynamic sequential images were performed wit h continuous acquisition. FINDINGS: HEPATIC KINETICS: There is prompt uptake of radiotracer in the liver. No focal defects are seen. There is normal rate of washout from the hepatic parenchyma. BILIARY CLEARANCE: Activity is first seen in the extrahepatic biliary system at 10 and 15 minutes minutes. There is nor mal excretion into the small bowel. GALLBLADDER: Surgically absent. BILIARY ENTRIC REFLUX: None observed. Other. Radionuclide passes into the descending duodenum and then along a surgical drain to the exterior. Minimal radionuclide suggest beyond the descending l oop of the duodenum CONCLUSION: Surgical absence of the gallbladder. No evidence of biliary obstruction or leak. Radionuclide passes into the descending duodenum and then externally via a drain in place. Michael Hartman MD on May 19, 2017 at 11:28 Board Certified Radiologist. This report was verified electronically.
[2017-05-19 11:34] VITALS: BP 112/73; PULSE 67; RESP 16; TEMP 96.5; O2SAT 99
--- NOTE | 2017-05-19 14:15 | PD.CAR.PN ---
CVT Progress Note Subjective/Hospital Course: Patient is status post laparoscopic cholecystectomy for gangrenous gallbladder Incisions are clean and dry HIRAL drainage serosanguineous Patient should remain on IV antibiotics for at least another day due to the severity of his gangrene and advanced pathology Diet tolerated Abdomen soft active bowel sounds Plan to discharge probably tomorrow 05/16/17 Patient doing much better today Bilateral good breath sounds with decreased breath sounds over the both bases consistent with atelectasis from laying in bed Abdomen is soft active bowel sounds and patient's tolerating diet HIRAL drainage is still significant about 300 cc over last 24 hours and this is serosanguineous and no bile in it This was a very bad infection and gangrenous cholecystitis some not surprised by the drainage and will leave the HIRAL drain for another day Continue IV antibiotics till tomorrow and then switch to by mouth antibiotics whether patient goes home or doesn't Patient is not very compliant with care and refuses to get out of bed and ambulate I have discussed this with patient at length and urged him to get up and be moving around so we can discharge him tomorrow 05/17/17 Patient doing better today Abdomen is soft active bowel sounds is taking by mouth well HIRAL drainage right upper quadrant significantly decreased and remained serosanguineous yellowish resembling ascites Incisions are clean and dry Patient still claims to be in significant amount of pain and refuses to go home He is a chronic narcotic user at home and under pain management protocols so this is not surprising Encouraged to go and ambulate Will discharge patient tomorrow 05/18/17 Patient doing very well Abdomen is soft active bowel sounds and incisions are clean HIRAL drainage is now turned yellowish brown with slight biliary tinge so I believe patient is draining from the ducts of Luschke Total drainage about 200 cc per 24 hours We will leave HIRAL in for another day or so LFTs normal Will check with HIDA scan to see there is an actual active drainage from the surface of the liver 05/19/17 Patient doing well HIRAL drainage is gradually decreasing and his yellowish somewhat bilious in nature but certainly not greenish bile HIDA scan confirms my prior diagnosis and suspicion off leakage from ducts of Luschka and the liver parenchyma due to the large raw surface after removal of the gangrenous gallbladder Is no biliary obstruction so standard management for this is to leave the HIRAL drain in and discharge the patient and eventually when this whole thing heals we'll remove HIRAL drain in the office 24 drainage is about 170 cc. Will discharge patient today and nursing will teach patient how to empty the HIRAL bulb Objective: Vital Signs Date Time Temp Pulse Resp B/P (MAP) Pulse Ox O2 Delivery O2 Flow Rate FiO2 05/19/17 11:34 96.5 67 16 112/73 (86) 99 05/19/17 08:00 96.6 67 17 107/67 (80) 97 05/19/17 04:00 97.3 68 16 128/80 (96) 98 05/19/17 00:00 96.9 70 16 146/86 (106) 99 05/18/17 20:00 98.2 72 16 151/89 (109) 98 05/18/17 16:28 18 05/18/17 16:00 97.2 72 17 121/73 (89) 98 Result Diagram: 05/17/17 0858 05/17/17 0858 David Crystal MD May 19, 2017 14:15
[2017-05-19 15:44] VITALS: BP 110/72; PULSE 67; RESP 18; TEMP 96.7; O2SAT 99
[2017-05-19] MEDS ORDERED: HYDR-3583 PO (16:38)
[2017-05-19] MEDS: ENOXAPARIN SODIUM 40 MG/0.4 ML SYRINGE SQ SCH (18:00)
[2017-05-20] MEDS ORDERED: REMOVE OLD FENTANYL PATCH T-DERMAL SCH (15:00)
== END 2017-05-19 18:36 | disposition home or self-care (01) | DRG 419 ==
LOC: NEPE 08:00 → NEDA 13:11 → N06A 16:04
PROVIDERS: ADMIT Surgery; ATTEND Surgery
PROC: 0FT44ZZ Resection of Gallbladder, Percutaneous Endoscopic Approach (ICD-10-PCS; principal; 2017-05-14 10:02)
DX: K80.00 Calculus of gallbladder with acute cholecystitis without obstruction (principal); J44.9 Chronic obstructive pulmonary disease, unspecified; F41.9 Anxiety disorder, unspecified; G89.29 Other chronic pain; Z79.899 Other long term (current) drug therapy; F17.210 Nicotine dependence, cigarettes, uncomplicated; Z98.1 Arthrodesis status
CPT/HCPCS: 74177; 78226; 80053; 81001; 83690; 85025; 85027; 86850; 86900; 86901; 86920; 88304; 93005; 96361; 96374; 96375; A9537; J0131; J0330; J0360; J1170; J1650; J1885; J2060; J2270; J2370; J2405; J2543; J3010; J7030; J7120; Q9967